=== PATIENT | female | born 1950 | race African-American/Black ===

== ENCOUNTER 2021-02-11 08:08 | Inpatient (IN) | payer OTHER ==
[~2021-02-11] VITALS: Ht 154.9 cm; Wt 146.1 kg
[2021-02-11] MEDS ORDERED: IPRATROPIUM BROMIDE (0.02%) 0.5MG/2.5ML NEB HHN STA (09:16)
[2021-02-11] MEDS ORDERED: ALBUTEROL (0.083%) 2.5MG/3ML NEB HHN STA (09:16)
[2021-02-11] MEDS ORDERED: PREDNISONE 20MG TABLET PO STA (09:16)
[2021-02-11] MEDS ORDERED: MAGNESIUM 2 G PREMIX 50 ML IV STA (09:16)
[2021-02-11 09:26] LABS: BASOPHILS % 0.8 % (0.0-2.0); CHLORIDE 108 mEq/L (98-107); EOSINOPHILS % 7.4 % (0.0-5.0); HEMATOCRIT. 30.1 % (36.0-48.0); HEMOGLOBIN. 9.5 g/dL (12.0-16.0); LYMPHOCYTES % 24.8 % (20.0-50.0); MEAN CORPUSCULAR HEMOGLOBIN 26.2 pg (28.0-32.0); MEAN CORPUSCULAR VOLUME 82.8 fL (81.0-99.0); MEAN PLATELET VOLUME 9.9 fl (7.4-10.4); MONOCYTES % 7.7 % (2.0-8.0); NEUTROPHILS % 59.3 % (40.0-76.0); PLATELET 231 x1000/uL (130-400); RED BLOOD CELL COUNT 3.64 mill/uL (4.2-5.4); RED CELL DISTRIBUTION WIDTH 17.2 % (11.6-14.6)
[2021-02-11] MEDS ORDERED: CEFTRIAXONE 1 G PREMIX 50 ML IV ONE (11:15)
[2021-02-11] MEDS ORDERED: DOXYCYCLINE HYCLATE 100 MG/VIAL IV ONE (11:15)
[2021-02-11] MEDS ORDERED: DOXYCYCLINE 100MG in DEXTROSE 5% WATER 100ML IV NR (11:30)
[2021-02-11] MEDS ORDERED: IPRATROPIUM BROMIDE (0.02%) 0.5MG/2.5ML NEB ONE (12:31)
[2021-02-11] MEDS ORDERED: ALBUTEROL (0.083%) 2.5MG/3ML NEB ONE (12:32)
[2021-02-11] MEDS ORDERED: ALBUTEROL 6.7GM HFA INHALER ORI PRN (13:15)
[2021-02-11] MEDS ORDERED: MORPHINE SULFATE 2 MG/ML CPJ (NOT FOR IM USE) IV PRN (13:15)
[2021-02-11] MEDS ORDERED: DIPHENHYDRAMINE 50MG/ML VIAL IV PRN (13:15)
[2021-02-11] MEDS ORDERED: ONDANSETRON HCL 4MG/2ML INJ IV PRN (13:15)
[2021-02-11] MEDS ORDERED: MAGNESIUM/ALUMINUM HYDROXIDE/SIMETHICONE 30ML UDC PO PRN (13:15)
[2021-02-11] MEDS ORDERED: DOCUSATE SODIUM 100MG CAPSULE PO PRN (13:15)
[2021-02-11] MEDS ORDERED: ACETAMINOPHEN 325MG TABLET PO PRN (13:15)
[2021-02-11] MEDS ORDERED: LORAZEPAM 2MG/ML CPJ IV PRN (13:15)
[2021-02-11] MEDS ORDERED: HYDROCODONE/ACETAMINOPHEN 5/325MG TABLET PO PRN (13:15)
[2021-02-11] MEDS ORDERED: AZITHROMYCIN 500 MG in DEXT 5% WATER 250 ML IV SCH (14:00)
[2021-02-11] MEDS: SODIUM CHLORIDE 0.9% INJ 3ML FLUSH IVF SCH (14:00)
[2021-02-11] MEDS: ENOXAPARIN 40MG/0.4ML SYR SUBCUT SCH ×2 (14:27→20:48)
[2021-02-11] MEDS: CLONIDINE 0.1MG TABLET PO PRN (20:49)
[2021-02-12 00:20] VITALS: BP 142/51
[2021-02-12] MEDS ORDERED: FURO-152 PO (03:46)
[2021-02-12] MEDS ORDERED: ALLO100T PO (03:46)
[2021-02-12] MEDS ORDERED: DABI150C PO (03:46)
[2021-02-12] MEDS ORDERED: ATOR40TA70 PO (03:46)
[2021-02-12] MEDS ORDERED: METO25TA6 PO (03:46)
[2021-02-12] MEDS ORDERED: HYDR50TA PO (03:46)
[2021-02-12] MEDS ORDERED: GLIP5TAB12 PO (03:46)
[2021-02-12] MEDS ORDERED: LISI40TA13 MT (03:46)
[2021-02-12 04:00] VITALS: BP 118/43
[2021-02-12 05:52] LABS: BASOPHILS % 0.9 % (0.0-2.0); HEMATOCRIT. 32.3 % (36.0-48.0); HEMOGLOBIN. 10.3 g/dL (12.0-16.0); LYMPHOCYTES % 13.2 % (20.0-50.0); MEAN CORPUSCULAR HEMOGLOBIN 26.3 pg (28.0-32.0); MEAN CORPUSCULAR VOLUME 82.8 fL (81.0-99.0); MEAN PLATELET VOLUME 9.7 fl (7.4-10.4); NEUTROPHILS % 79.9 % (40.0-76.0); PLATELET 258 x1000/uL (130-400); RED BLOOD CELL COUNT 3.91 mill/uL (4.2-5.4)
[2021-02-12 06:09] LABS: CHLORIDE 109 mEq/L (98-107)
[2021-02-12] MEDS: SODIUM CHLORIDE 0.9% INJ 3ML FLUSH IVF SCH ×4 (07:03→22:20)
[2021-02-12 08:00] VITALS: BP 127/55
[2021-02-12] MEDS: ENOXAPARIN 40MG/0.4ML SYR SUBCUT SCH ×2 (08:24→22:19)
[2021-02-12] MEDS ORDERED: CEFTRIAXONE 1 G PREMIX 50 ML IV SCH (09:00)
[2021-02-12] MEDS ORDERED: IPRATROPIUM/ALBUTEROL 0.5-3(2.5)MG/3ML NEB ONE (10:10)
[2021-02-12 11:58] VITALS: BP 119/53
[2021-02-12] MEDS: CEFTRIAXONE 1,000 MG in DEXTROSE 5% WATER 50 ML IV SCH (13:57)
[2021-02-12] MEDS ORDERED: NALOXONE HCL 0.4MG/ML VIAL IV PRN (14:45)
[2021-02-12 16:00] VITALS: BP 112/51
[2021-02-12] MEDS: MONTELUKAST SODIUM 10MG TABLET PO SCH (16:54)
[2021-02-12] MEDS: METHYLPREDNISOLONE SOD SUCC 40 MG/ML VIAL IV SCH (16:54)
[2021-02-12] MEDS: AZITHROMYCIN 500 MG in DEXT 5% WATER 250 ML IV SCH (16:54)
[2021-02-12 20:00] VITALS: BP 143/58
[2021-02-12] MEDS: IPRATROPIUM/ALBUTEROL 0.5-3(2.5)MG/3ML NEB HHN SCH (21:08)
[2021-02-13] VITALS: BP 143/55
[2021-02-13] MEDS: METHYLPREDNISOLONE SOD SUCC 40 MG/ML VIAL IV SCH ×3 (00:39→16:54)
[2021-02-13] MEDS: IPRATROPIUM/ALBUTEROL 0.5-3(2.5)MG/3ML NEB HHN SCH ×4 (02:35→21:19)
[2021-02-13 04:00] VITALS: BP 140/56
[2021-02-13] MEDS: GUAIFENESIN 200MG/10ML SUGAR FREE UDC PO PRN ×2 (04:14→16:58)
[2021-02-13] MEDS: IPRATROPIUM/ALBUTEROL 0.5-3(2.5)MG/3ML NEB HHN PRN (04:36)
[2021-02-13] MEDS: SODIUM CHLORIDE 0.9% INJ 3ML FLUSH IVF SCH ×3 (06:28→21:38)
[2021-02-13 08:00] VITALS: BP 158/68
[2021-02-13] MEDS: ENOXAPARIN 40MG/0.4ML SYR SUBCUT SCH ×2 (08:45→21:38)
[2021-02-13 12:00] VITALS: BP 145/61
[2021-02-13 16:00] VITALS: BP 154/55
[2021-02-13] MEDS: CEFTRIAXONE 1,000 MG in DEXTROSE 5% WATER 50 ML IV SCH (16:52)
[2021-02-13] MEDS: AZITHROMYCIN 500 MG in DEXT 5% WATER 250 ML IV SCH (16:52)
[2021-02-13] MEDS: MONTELUKAST SODIUM 10MG TABLET PO SCH (16:54)
[2021-02-13] MEDS ORDERED: LACTULOSE 20G/30ML UDC PO NR (17:30)
[2021-02-13 20:00] VITALS: BP 138/62
[2021-02-14] VITALS: BP 128/50
[2021-02-14] MEDS: METHYLPREDNISOLONE SOD SUCC 40 MG/ML VIAL IV SCH ×3 (00:07→17:27)
[2021-02-14] MEDS: GUAIFENESIN 200MG/10ML SUGAR FREE UDC PO PRN ×2 (00:12→08:56)
[2021-02-14] MEDS: IPRATROPIUM/ALBUTEROL 0.5-3(2.5)MG/3ML NEB HHN SCH ×4 (01:17→20:24)
[2021-02-14 04:00] VITALS: BP 127/89
[2021-02-14] MEDS: SODIUM CHLORIDE 0.9% INJ 3ML FLUSH IVF SCH ×3 (06:12→21:03)
[2021-02-14 08:00] VITALS: BP 153/60
[2021-02-14] MEDS: ENOXAPARIN 40MG/0.4ML SYR SUBCUT SCH ×2 (08:41→21:03)
[2021-02-14] MEDS: AZITHROMYCIN 500 MG TABLET PO SCH (11:48)
[2021-02-14 12:00] VITALS: BP 135/52
[2021-02-14] MEDS: CEFTRIAXONE 1,000 MG in DEXTROSE 5% WATER 50 ML IV SCH (15:21)
[2021-02-14 16:00] VITALS: BP 153/71
[2021-02-14] MEDS: MONTELUKAST SODIUM 10MG TABLET PO SCH (17:27)
[2021-02-14 20:00] VITALS: BP 155/94
[2021-02-15] VITALS: BP 157/85
[2021-02-15] MEDS: METHYLPREDNISOLONE SOD SUCC 40 MG/ML VIAL IV SCH ×3 (00:15→16:50)
[2021-02-15] MEDS: IPRATROPIUM/ALBUTEROL 0.5-3(2.5)MG/3ML NEB HHN SCH ×4 (01:33→21:04)
[2021-02-15 04:00] VITALS: BP 158/60
[2021-02-15 06:36] LABS: HEMATOCRIT. 33.5 % (36.0-48.0); HEMOGLOBIN. 10.8 g/dL (12.0-16.0); MEAN CORPUSCULAR HEMOGLOBIN 26.8 pg (28.0-32.0); MEAN CORPUSCULAR VOLUME 82.9 fL (81.0-99.0); PLATELET 265 x1000/uL (130-400); RED BLOOD CELL COUNT 4.04 mill/uL (4.2-5.4); RED CELL DISTRIBUTION WIDTH 17.2 % (11.6-14.6)
[2021-02-15 06:40] LABS: CHLORIDE 106 mEq/L (98-107)
[2021-02-15] MEDS: CLONIDINE 0.1MG TABLET PO PRN (06:56)
[2021-02-15] MEDS: SODIUM CHLORIDE 0.9% INJ 3ML FLUSH IVF SCH ×3 (07:18→21:32)
[2021-02-15] MEDS: ENOXAPARIN 40MG/0.4ML SYR SUBCUT SCH ×2 (09:58→21:31)
[2021-02-15] MEDS: AZITHROMYCIN 500 MG TABLET PO SCH (10:34)
[2021-02-15 12:00] VITALS: BP 180/71
[2021-02-15] MEDS ORDERED: SODIUM POLYSTYRENE SULFONATE 15 G/60 ML BOT PO SCH (13:00)
[2021-02-15] MEDS: CEFTRIAXONE 1,000 MG in DEXTROSE 5% WATER 50 ML IV SCH (15:07)
[2021-02-15 16:00] VITALS: BP 132/75
[2021-02-15] MEDS: MONTELUKAST SODIUM 10MG TABLET PO SCH (16:50)
[2021-02-15 20:00] VITALS: BP 175/75
[2021-02-15 20:14] LABS: PLATELET ESTIMATE NORMAL
[2021-02-15] MEDS: GUAIFENESIN 600MG ER TABLET PO SCH (21:32)
[2021-02-16 00:01] VITALS: BP 174/62
[2021-02-16] MEDS: METHYLPREDNISOLONE SOD SUCC 40 MG/ML VIAL IV SCH ×3 (00:47→17:59)
[2021-02-16] MEDS: IPRATROPIUM/ALBUTEROL 0.5-3(2.5)MG/3ML NEB HHN SCH ×3 (02:45→21:28)
[2021-02-16 04:00] VITALS: BP 181/69
[2021-02-16] MEDS: SODIUM CHLORIDE 0.9% INJ 3ML FLUSH IVF SCH ×3 (05:34→21:41)
[2021-02-16 08:00] VITALS: BP 115/73
[2021-02-16] MEDS: IPRATROPIUM/ALBUTEROL 0.5-3(2.5)MG/3ML NEB HHN PRN (08:43)
[2021-02-16] MEDS: GUAIFENESIN 600MG ER TABLET PO SCH ×2 (09:45→20:38)
[2021-02-16] MEDS: ENOXAPARIN 40MG/0.4ML SYR SUBCUT SCH ×2 (09:46→20:38)
[2021-02-16 12:00] VITALS: BP 120/60
[2021-02-16] MEDS ORDERED: THROAT LOZENGES-BENZOCAINE/MENTH/CETYLPYRD CL LOZENGES MM PRN (13:30)
[2021-02-16] MEDS: CEFTRIAXONE 1,000 MG in DEXTROSE 5% WATER 50 ML IV SCH (15:34)
[2021-02-16 16:00] VITALS: BP 129/63
[2021-02-16] MEDS: MONTELUKAST SODIUM 10MG TABLET PO SCH (17:59)
[2021-02-16 20:00] VITALS: BP 127/76
[2021-02-16] MEDS: FLUTICASONE PROPIONATE 50MCG/SPRAY BOTTLE BOTHNSTRLS SCH (20:38)
[2021-02-17] VITALS: BP 112/70
[2021-02-17] MEDS: METHYLPREDNISOLONE SOD SUCC 40 MG/ML VIAL IV SCH ×3 (01:13→16:26)
[2021-02-17 04:00] VITALS: BP 147/86
[2021-02-17] MEDS: IPRATROPIUM/ALBUTEROL 0.5-3(2.5)MG/3ML NEB HHN PRN (04:59)
[2021-02-17] MEDS: SODIUM CHLORIDE 0.9% INJ 3ML FLUSH IVF SCH ×3 (06:46→22:02)
[2021-02-17 08:00] VITALS: BP 111/71
[2021-02-17] MEDS: IPRATROPIUM/ALBUTEROL 0.5-3(2.5)MG/3ML NEB HHN SCH ×3 (08:38→21:16)
[2021-02-17] MEDS: ENOXAPARIN 40MG/0.4ML SYR SUBCUT SCH ×2 (09:06→22:02)
[2021-02-17] MEDS: GUAIFENESIN 600MG ER TABLET PO SCH ×2 (09:06→22:07)
[2021-02-17] MEDS: FLUTICASONE PROPIONATE 50MCG/SPRAY BOTTLE BOTHNSTRLS SCH ×2 (09:07→22:09)
[2021-02-17 12:00] VITALS: BP 125/99
[2021-02-17 16:00] VITALS: BP 125/99
[2021-02-17 16:24] LABS: BG BASE EXCESS -1.1 mmol/L (-2.0-2.0); BG CARBOXYHEMOGLOBIN 0.6 % (0.5-1.5); BG DEOXYHEMOGLOBIN 4.6 % (0.0-5.0); BG FRACTION INSPIRED OXYGEN 21; BG METHEMOGLOBIN 0.1 % (0.0-1.5); BG OXYGEN SATURATION 95.4 % (92.0-98.5); BG OXYHEMOGLOBIN 94.7 % (94.0-97.0); BG PCO2 36.4 mmHg (35.0-45.0); BG PH 7.418 (7.350-7.450); BG PO2 74.8 mmHg (75.0-100.0); BG SAMPLE SITE RIGHT RADIAL; BG TOTAL HEMOGLOBIN 12.4 g/dL (12.0-18.0); BG VENT MODE ROOM AIR
[2021-02-17] MEDS: CEFTRIAXONE 1,000 MG in DEXTROSE 5% WATER 50 ML IV SCH (16:26)
[2021-02-17] MEDS: MONTELUKAST SODIUM 10MG TABLET PO SCH (16:26)
[2021-02-17 20:00] VITALS: BP 145/59
[2021-02-17] MEDS: GUAIFENESIN 200MG/10ML SUGAR FREE UDC PO PRN (22:02)
[2021-02-18] VITALS: BP 145/107
[2021-02-18] MEDS: CLONIDINE 0.1MG TABLET PO PRN ×2 (00:42→09:41)
[2021-02-18 04:00] VITALS: BP 113/72
[2021-02-18] MEDS: SODIUM CHLORIDE 0.9% INJ 3ML FLUSH IVF SCH ×2 (05:05→16:55)
[2021-02-18 08:00] VITALS: BP 184/78
[2021-02-18] MEDS: IPRATROPIUM/ALBUTEROL 0.5-3(2.5)MG/3ML NEB HHN SCH (09:13)
[2021-02-18] MEDS: FLUTICASONE PROPIONATE 50MCG/SPRAY BOTTLE BOTHNSTRLS SCH (09:41)
[2021-02-18] MEDS: GUAIFENESIN 600MG ER TABLET PO SCH (09:41)
[2021-02-18] MEDS: ENOXAPARIN 40MG/0.4ML SYR SUBCUT SCH (09:41)
[2021-02-18] MEDS: METHYLPREDNISOLONE SOD SUCC 40 MG/ML VIAL IV SCH ×3 (09:41→16:55)
[2021-02-18 12:00] VITALS: BP 140/43
[2021-02-18 16:00] VITALS: BP 141/42
[2021-02-18 16:14] VITALS: BP 141/54
[2021-02-18] MEDS: MONTELUKAST SODIUM 10MG TABLET PO SCH (16:55)
[2021-02-18] MEDS ORDERED: HYDRALAZINE 20MG/ML VIAL IV NR (17:00)
== END 2021-02-18 17:30 | disposition home or self-care (01) | DRG 193 ==
LOC: ER 08:24 → MICUSO 11:59 → 7EST 20:57
PROVIDERS: ADMIT Internal Medicine; ATTEND Internal Medicine
DX: J18.9 Pneumonia, unspecified organism (principal); L89.893 Pressure ulcer of other site, stage 3; J96.00 Acute respiratory failure, unspecified whether with hypoxia or hypercapnia; E46 Unspecified protein-calorie malnutrition; J45.901 Unspecified asthma with (acute) exacerbation; Z68.44 Body mass index [BMI] 60.0-69.9, adult; D72.10 Eosinophilia, unspecified; E11.51 Type 2 diabetes mellitus with diabetic peripheral angiopathy without gangrene; I11.9 Hypertensive heart disease without heart failure; I25.10 Atherosclerotic heart disease of native coronary artery without angina pectoris; E66.01 Morbid (severe) obesity due to excess calories; E87.5 Hyperkalemia; Z20.822 Contact with and (suspected) exposure to COVID-19; Z87.09 Personal history of other diseases of the respiratory system; Z89.512 Acquired absence of left leg below knee; Z89.612 Acquired absence of left leg above knee; Z88.2 Allergy status to sulfonamides
CPT/HCPCS: 36415; 36600; 71045; 80048; 80053; 82040; 82375; 82805; 82962; 83735; 83880; 84134; 84484; 85025; 87426; 93005; 94640; 97110; 97162; 97530; 99285; C1893; J0360; J0456; J0696; J1650; J2920; J3475; J3490; J7040; J7060; J7512

== ENCOUNTER 2021-12-30 01:16 | Inpatient (IN) | payer OTHER ==
[~2021-12-30] VITALS: Ht 165.1 cm; Wt 146.5 kg
[~2021-12-30 01:16] MED LIST: ALLO100T PO; ATOR40TA70 PO; DABI150C PO; FURO-152 PO; GLIP5TAB12 PO; HYDR50TA PO; LISI40TA13 MT; METO25TA6 PO
[2021-12-30 01:57] LABS: BASOPHILS % 0.5 % (0.0-2.0); EOSINOPHILS % 8.7 % (0.0-5.0); HEMATOCRIT. 33.9 % (36.0-48.0); HEMOGLOBIN. 10.6 g/dL (12.0-16.0); LYMPHOCYTES % 15.3 % (20.0-50.0); MEAN CORPUSCULAR HEMOGLOBIN 26.6 pg (28.0-32.0); MEAN CORPUSCULAR VOLUME 84.7 fL (81.0-99.0); MEAN PLATELET VOLUME 9.1 fl (7.4-10.4); MONOCYTES % 6.5 % (2.0-8.0); PLATELET 242 x1000/uL (130-400)
[2021-12-30] MEDS ORDERED: MAGNESIUM 2 G PREMIX 50 ML IV ONE (02:00)
[2021-12-30] MEDS ORDERED: METHYLPREDNISOLONE SOD SUCC 125 MG/2 ML VIAL IV ONE (02:00)
[2021-12-30] MEDS ORDERED: IPRATROPIUM/ALBUTEROL 0.5-3(2.5)MG/3ML NEB HHN ONE (02:00)
[2021-12-30 02:05] LABS: INR 1.2; PROTHROMBIN TIME 12.9 sec (9.6-11.0)
[2021-12-30 02:22] LABS: CHLORIDE 105 mEq/L (98-107)
[2021-12-30] MEDS ORDERED: FUROSEMIDE 40MG/4ML VIAL IVP ONE (03:00)
[2021-12-30] MEDS ORDERED: ASPIRIN 325MG EC TABLET PO ONE (03:45)
[2021-12-30] MEDS ORDERED: IOHEXOL-350 100 ML BOTTLE ONE (06:32)
[2021-12-30] MEDS ORDERED: ENOXAPARIN 150MG/ML SYR SUBCUT NR (07:00)
[2021-12-30] MEDS ORDERED: IPRATROPIUM/ALBUTEROL 0.5-3(2.5)MG/3ML NEB HHN PRN (07:15)
[2021-12-30] MEDS ORDERED: CLONIDINE 0.1MG TABLET PO PRN (07:15)
[2021-12-30] MEDS ORDERED: ACETAMINOPHEN 325MG TABLET PO PRN ×2 (07:15)
[2021-12-30] MEDS ORDERED: LORAZEPAM 0.5MG TABLET PO PRN (07:15)
[2021-12-30] MEDS ORDERED: DOCUSATE SODIUM 100MG CAPSULE PO PRN (07:15)
[2021-12-30] MEDS ORDERED: NITROGLYCERIN 0.4MG TABLET SL SL PRN (07:15)
[2021-12-30] MEDS ORDERED: HYDROCODONE/ACETAMINOPHEN 5/325MG TABLET PO PRN (07:15)
[2021-12-30] MEDS ORDERED: ONDANSETRON HCL 4MG/2ML INJ IV PRN (07:15)
[2021-12-30] MEDS ORDERED: MORPHINE SULFATE 2 MG/ML CPJ (NOT FOR IM USE) IV PRN (07:15)
[2021-12-30] MEDS ORDERED: NALOXONE HCL 0.4MG/ML VIAL IV PRN (07:30)
[2021-12-30 09:20] VITALS: BP 141/53
[2021-12-30 10:00] VITALS: BP 141/53
[2021-12-30 12:00] VITALS: BP 163/63
[2021-12-30] MEDS ORDERED: AMLODIPINE 5MG TABLET PO SCH (13:30)
[2021-12-30] MEDS ORDERED: DEXTROSE 50% WATER 50ML SYRINGE IV PRN (13:30)
[2021-12-30] MEDS: ALLOPURINOL 100 MG TABLET PO SCH (13:56)
[2021-12-30 16:00] VITALS: BP 127/63
[2021-12-30] MEDS: BLOOD SUGAR DIAGNOSTIC STRIP TEST SCH (17:05)
[2021-12-30] MEDS: INSULIN LISPRO 100 UNITS/ML SUBCUT SCH ×2 (17:05→20:58)
[2021-12-30 20:00] VITALS: BP 143/64
[2021-12-30] MEDS: ATORVASTATIN CALCIUM 40MG TABLET PO SCH (20:53)
[2021-12-30] MEDS: AMLODIPINE 5MG TABLET PO SCH (20:54)
[2021-12-30] MEDS: ENOXAPARIN 150MG/ML SYR SUBCUT SCH (20:55)
[2021-12-30] MEDS: IPRATROPIUM/ALBUTEROL 0.5-3(2.5)MG/3ML NEB HHN SCH (21:02)
[2021-12-31] VITALS (12 sets, daily range): BP systolic 104–143; BP diastolic 56–79
[2021-12-31] MEDS: IPRATROPIUM/ALBUTEROL 0.5-3(2.5)MG/3ML NEB HHN SCH ×4 (01:38→20:42)
[2021-12-31] MEDS: BLOOD SUGAR DIAGNOSTIC STRIP TEST SCH ×4 (07:20→20:20)
[2021-12-31] MEDS: INSULIN LISPRO 100 UNITS/ML SUBCUT SCH ×4 (07:50→20:21)
[2021-12-31 08:04] LABS: BASOPHILS % 0.4 % (0.0-2.0); EOSINOPHILS % 0.6 % (0.0-5.0); HEMATOCRIT. 33.3 % (36.0-48.0); HEMOGLOBIN. 10.5 g/dL (12.0-16.0); LYMPHOCYTES % 12.5 % (20.0-50.0); MEAN CORPUSCULAR HEMOGLOBIN 26.7 pg (28.0-32.0); MEAN CORPUSCULAR VOLUME 84.2 fL (81.0-99.0); MEAN PLATELET VOLUME 9.7 fl (7.4-10.4); NEUTROPHILS % 80.5 % (40.0-76.0); PLATELET 253 x1000/uL (130-400); RED BLOOD CELL COUNT 3.95 mill/uL (4.2-5.4); RED CELL DISTRIBUTION WIDTH 18.6 % (11.6-14.6)
[2021-12-31 08:08] LABS: CHLORIDE 103 mEq/L (98-107)
[2021-12-31] MEDS ORDERED: ASPIRIN 81MG EC TABLET PO SCH (09:00)
[2021-12-31 09:20] LABS: PHOSPHORUS 0.3 mg/dL (2.5-4.9)
[2021-12-31] MEDS: ALLOPURINOL 100 MG TABLET PO SCH (09:23)
[2021-12-31] MEDS: AMLODIPINE 5MG TABLET PO SCH ×2 (09:24→20:20)
[2021-12-31] MEDS: ENOXAPARIN 150MG/ML SYR SUBCUT SCH ×2 (09:24→20:21)
[2021-12-31] MEDS ORDERED: FUROSEMIDE 40MG/4ML VIAL IVP SCH (11:00)
[2021-12-31] MEDS ORDERED: SODIUM PHOS,M-BASIC-D-BASIC 20 MM in DEXT 5% WATER 243.3333 ML IV NR (12:30)
[2021-12-31] MEDS ORDERED: BUDESONIDE 0.5MG/2ML NEB HHN SCH (15:30)
[2021-12-31] MEDS ORDERED: POTASSIUM PHOS,M-BASIC-D-BASIC 30 MMOL in DEXT 5% WATER 500 ML IV SCH (17:00)
[2021-12-31] MEDS: ATORVASTATIN CALCIUM 40MG TABLET PO SCH (20:20)
[2022-01-01 00:06] VITALS: BP 147/72
== END 2022-01-01 00:25 | disposition short-term general hospital (02) | DRG 280 ==
LOC: ER 01:16 → ENRESERV 07:12 → 6WST 09:52 → 3WST 12-31 09:09
PROVIDERS: ADMIT Internal Medicine; ATTEND Internal Medicine
DX: I21.4 Non-ST elevation (NSTEMI) myocardial infarction (principal); I26.99 Other pulmonary embolism without acute cor pulmonale; J96.01 Acute respiratory failure with hypoxia; I50.21 Acute systolic (congestive) heart failure; E44.1 Mild protein-calorie malnutrition; J45.901 Unspecified asthma with (acute) exacerbation; J84.9 Interstitial pulmonary disease, unspecified; Z68.43 Body mass index [BMI] 50.0-59.9, adult; E66.01 Morbid (severe) obesity due to excess calories; D64.9 Anemia, unspecified; D72.10 Eosinophilia, unspecified; E11.51 Type 2 diabetes mellitus with diabetic peripheral angiopathy without gangrene; E83.39 Other disorders of phosphorus metabolism; E87.6 Hypokalemia; Z20.822 Contact with and (suspected) exposure to COVID-19; E78.5 Hyperlipidemia, unspecified; I11.0 Hypertensive heart disease with heart failure; I25.10 Atherosclerotic heart disease of native coronary artery without angina pectoris; I44.7 Left bundle-branch block, unspecified; K80.20 Calculus of gallbladder without cholecystitis without obstruction; N28.1 Cyst of kidney, acquired; Z79.84 Long term (current) use of oral hypoglycemic drugs; Z86.718 Personal history of other venous thrombosis and embolism; Z89.612 Acquired absence of left leg above knee; Z95.828 Presence of other vascular implants and grafts; Z88.2 Allergy status to sulfonamides; Z79.899 Other long term (current) drug therapy
CPT/HCPCS: 36415; 71045; 71275; 80048; 80053; 80061; 82962; 83036; 83735; 83880; 84100; 84443; 84484; 85025; 85379; 87426; 93005; 93306; 94640; 94664; 99285; C1893; J1650; J1815; J1940; J2930; J3475; J3490; J7060; J7626; Q9967

== ENCOUNTER 2022-05-12 14:47 | Emergency (ER) | payer OTHER ==
[~2022-05-12] VITALS: Ht 157.5 cm; Wt 200.0 kg
[2022-05-12 16:11] LABS: EOSINOPHILS % 3.2 % (0.0-5.0); LYMPHOCYTES % 20.5 % (20.0-50.0); MEAN CORPUSCULAR HEMOGLOBIN 22.7 pg (28.0-32.0); MEAN CORPUSCULAR VOLUME 75.2 fL (81.0-99.0); MEAN PLATELET VOLUME 8.8 fl (7.4-10.4); MONOCYTES % 5.8 % (2.0-8.0); NEUTROPHILS % 69.5 % (40.0-76.0); PLATELET 267 x1000/uL (130-400); RED BLOOD CELL COUNT 4.38 mill/uL (4.2-5.4)
[2022-05-12 16:14] LABS: CHLORIDE 107 mEq/L (98-107)
[2022-05-12 16:24] LABS: ETHANOL BLOOD < 10 mg/dL
[2022-05-12] MEDS ORDERED: FUROSEMIDE 40MG/4ML VIAL IVP ONE (16:45)
[2022-05-12] MEDS ORDERED: MORPHINE SULFATE 4 MG/ML CPJ (NOT FOR IM USE) IV NR (17:30)
[2022-05-12 20:00] VITALS: BP 123/94
== END 2022-05-12 21:24 | disposition short-term general hospital (02) ==
LOC: ER 15:01
DX: I11.0 Hypertensive heart disease with heart failure (principal); I50.9 Heart failure, unspecified; R07.9 Chest pain, unspecified; J45.909 Unspecified asthma, uncomplicated; R77.8 Other specified abnormalities of plasma proteins; D64.9 Anemia, unspecified; J44.9 Chronic obstructive pulmonary disease, unspecified; E11.9 Type 2 diabetes mellitus without complications; Z88.2 Allergy status to sulfonamides; Z20.822 Contact with and (suspected) exposure to COVID-19; Z89.619 Acquired absence of unspecified leg above knee
CPT/HCPCS: 36415; 71045; 80053; 80320; 83690; 83880; 84484; 85025; 87426; 93005; 96374; 96375; 99285; C9803; J1940; J2270; G0480

== ENCOUNTER 2023-04-06 18:24 | Emergency (ER) | payer OTHER ==
[~2023-04-06] VITALS: Ht 165.1 cm; Wt 77.0 kg
[~2023-04-06 18:24] MED LIST changes: -GLIP5TAB12 PO; +GLIP5TAB22 PO
[2023-04-06] MEDS ORDERED: IPRATROPIUM BROMIDE (0.02%) 0.5MG/2.5ML NEB HHN NR (18:37)
[2023-04-06] MEDS ORDERED: IPRATROPIUM BROMIDE (0.02%) 0.5MG/2.5ML NEB HHN STA (18:37)
[2023-04-06] MEDS ORDERED: METHYLPREDNISOLONE SOD SUCC 125MG/2ML (ACT-O-VIAL) IV STA (18:37)
[2023-04-06] MEDS ORDERED: ALBUTEROL (0.083%) 2.5MG/3ML NEB HHN STA (18:37)
[2023-04-06] MEDS ORDERED: ALBUTEROL (0.083%) 2.5MG/3ML NEB HHN NR (18:37)
[2023-04-06] MEDS ORDERED: METHYLPREDNISOLONE SOD SUCC 125MG/2ML (ACT-O-VIAL) IV NR (18:37)
[2023-04-06] MEDS ORDERED: MAGNESIUM 2 G PREMIX 50 ML IV ONE (18:45)
[2023-04-06 19:46] LABS: BASOPHILS % 0.9 % (0.0-2.0); EOSINOPHILS % 4.3 % (0.0-5.0); HEMOGLOBIN. 11.3 g/dL (12.0-16.0); LYMPHOCYTES % 27.2 % (20.0-50.0); MEAN CORPUSCULAR HEMOGLOBIN 28.9 pg (28.0-32.0); MEAN CORPUSCULAR HGB CONC 32.3 g/dL (31.0-37.0); MEAN CORPUSCULAR VOLUME 89.4 fL (81.0-99.0); MEAN PLATELET VOLUME 9.2 fl (7.4-10.4); MONOCYTES % 7.9 % (2.0-8.0); NEUTROPHILS % 59.7 % (40.0-76.0); PLATELET 231 x1000/uL (130-400); RED BLOOD CELL COUNT 3.92 mill/uL (4.2-5.4); RED CELL DISTRIBUTION WIDTH 18.3 % (11.6-14.6); WHITE BLOOD COUNT 6.1 x1000/uL (4.5-11.0)
[2023-04-06 19:58] LABS: INR 1.2; PARTIAL THROMBOPLASTIN TIME 33.3 sec (23.4-31.0); PROTHROMBIN TIME 12.4 sec (9.6-11.0)
[2023-04-06 20:04] LABS: ALANINE AMINOTRANSFERASE 18 IU/L (10-49); ALBUMIN 3.7 g/dL (3.2-4.8); ASPARTATE AMINOTRANSFERASE 22 IU/L (<34); BILIRUBIN TOTAL 0.5 mg/dL (0.1-1.0); CALCIUM 9.8 mg/dL (8.7-10.4); CARBON DIOXIDE 14 mEq/L (21-32); CHLORIDE 109 mEq/L (98-107); CREATININE 1.1 mg/dL (0.6-1.0); GLUCOSE 113 mg/dL (70-105); POTASSIUM 5.4 mEq/L (3.5-5.1); PROTEIN TOTAL 7.6 g/dL (6.0-8.3); SODIUM 138 mEq/L (136-145); UREA NITROGEN BLOOD 65 mg/dL (9-23)
[2023-04-06 20:56] LABS: TROPONIN I HIGH SENSITIVITY 37 ng/L (3.0-34)
[2023-04-06] MEDS ORDERED: SODIUM CHLORIDE 0.9% 500 ML IV ONE (22:30)
[2023-04-06 22:35] VITALS: PULSE 90; RESP 20; O2SAT 99
[2023-04-07 01:35] LABS: TROPONIN I HIGH SENSITIVITY 52 ng/L (3.0-34)
[2023-04-07] MEDS ORDERED: ALBUTEROL (0.083%) 2.5MG/3ML NEB HHN ONE (04:00)
[2023-04-07 08:21] VITALS: BP 131/78; PULSE 113; RESP 24; TEMP 98.3
== END 2023-04-07 08:19 | disposition short-term general hospital (02) ==
LOC: ER 18:24 → CANBEDREQ 04-07 11:10
DX: J45.901 Unspecified asthma with (acute) exacerbation (principal); I21.4 Non-ST elevation (NSTEMI) myocardial infarction; I48.91 Unspecified atrial fibrillation; I50.9 Heart failure, unspecified; J44.9 Chronic obstructive pulmonary disease, unspecified; E11.9 Type 2 diabetes mellitus without complications; Z79.899 Other long term (current) drug therapy; Z88.2 Allergy status to sulfonamides; Z20.822 Contact with and (suspected) exposure to COVID-19
CPT/HCPCS: 99291; 96365; 80053; 83880; 85025; 85610; 85730; 84484 ×2; 36415 ×2; 71045; 94640; 93005; 87426; J3475; J2930; J7040

== ENCOUNTER 2024-02-17 18:10 | Inpatient (IN) | payer OTHER ==
[~2024-02-17] VITALS: Ht 170.2 cm; Wt 117.9 kg
[2024-02-17 20:31] LABS: BASOPHILS % 0.9 % (0.0-2.0); EOSINOPHILS % 3.3 % (0.0-5.0); HEMOGLOBIN. 12.6 g/dL (12.0-16.0); LYMPHOCYTES % 16.7 % (20.0-50.0); MEAN CORPUSCULAR HEMOGLOBIN 29.6 pg (28.0-32.0); MEAN CORPUSCULAR HGB CONC 32.2 g/dL (31.0-37.0); MEAN CORPUSCULAR VOLUME 91.8 fL (81.0-99.0); MEAN PLATELET VOLUME 9.3 fl (7.4-10.4); MONOCYTES % 9.3 % (2.0-8.0); NEUTROPHILS % 69.8 % (40.0-76.0); PLATELET 301 x1000/uL (130-400); RED BLOOD CELL COUNT 4.25 mill/uL (4.2-5.4); RED CELL DISTRIBUTION WIDTH 18.9 % (11.6-14.6); WHITE BLOOD COUNT 5.7 x1000/uL (4.5-11.0)
[2024-02-17 20:38] LABS: POTASSIUM 4.7 mEq/L (3.5-5.1)
[2024-02-17 20:39] LABS: CALCIUM 9.8 mg/dL (8.7-10.4)
[2024-02-17 20:42] LABS: INR 1.7; PROTHROMBIN TIME 17.9 sec (9.6-11.0)
[2024-02-17 20:44] LABS: CREATININE 1.6 mg/dL (0.6-1.0)
[2024-02-17] MEDS: MORPHINE SULFATE 4 MG/ML INJ (FOR IV/IM USE) IV ONE (20:44)
[2024-02-17] MEDS: SODIUM CHLORIDE 0.9% 1,000 ML IV ONE (22:58)
[2024-02-17] MEDS: IOHEXOL-300 100 ML BOTTLE ONE (23:42)
[2024-02-17] MEDS: CEFTRIAXONE 1GM/50ML 50 ML IV ONE (23:58)
[2024-02-18] VITALS (47 sets, daily range): BP systolic 69–141; BP diastolic 37–126; PULSE 56–92; RESP 14–29; TEMP 36.44736–36.61404; O2SAT 96–100
[2024-02-18 00:09] LABS: CLARITY URINE TURBID (CLEAR); COLOR URINE RED (YELLOW); GLUCOSE URINE NEGATIVE (NEGATIVE); KETONES URINE NEGATIVE (NEGATIVE); LEUKOCYTE ESTERASE URINE 2+ (NEGATIVE); NITRITE URINE POSITIVE (NEGATIVE); OCCULT BLOOD URINE 2+ (NEGATIVE); PROTEIN URINE 2+ (NEGATIVE); SPECIFIC GRAVITY URINE 1.021 (1.005-1.030); UROBILINOGEN URINE 0.2 E.U./dL (0.2-1.0)
[2024-02-18] MEDS: CEFTRIAXONE 1GM/50ML 50 ML IV NR (00:15)
[2024-02-18] MEDS ORDERED: VASOPRESSIN 20 UNIT in SODIUM CHLORIDE 0.9% 99 ML IV PRN ×2 (02:30→02:45)
[2024-02-18] MEDS ORDERED: EPINEPHRINE 5 MG in SODIUM CHLORIDE 0.9% 245 ML IV PRN (02:30)
[2024-02-18] MEDS: SODIUM CHLORIDE 0.9% 1,000 ML IV NR (02:46)
[2024-02-18 02:52] LABS: BACTERIA URINE 3+; RBC URINE TNTC /hpf (0-2); SQUAMOUS EPITHELIAL CELL URINE NONE SEEN /lpf (RARE/1+); WBC URINE 0-2 /hpf (0-2)
[2024-02-18] MEDS: HUMAN-LANS PROTHROMBIN CPLX (PCC) 1000 UNITS VIAL IV NR (03:11)
[2024-02-18] MEDS: NOREPINEPHRINE 8MG/250ML PMX 250 ML IV PRN (04:00)
[2024-02-18] MEDS: SODIUM CHLORIDE 0.9% 1,000 ML IV ONE (04:00)
[2024-02-18] MEDS ORDERED: DEXTROSE 50% WATER 50ML SYRINGE IV PRN (07:30)
[2024-02-18] MEDS ORDERED: IPRATROPIUM/ALBUTEROL 0.5-3(2.5)MG/3ML NEB HHN PRN (07:30)
[2024-02-18] MEDS ORDERED: ACETAMINOPHEN 325MG TABLET PO PRN (07:30)
[2024-02-18] MEDS ORDERED: CLONIDINE 0.1MG TABLET PO PRN (07:30)
[2024-02-18] MEDS ORDERED: ONDANSETRON HCL 4MG/2ML INJ IV PRN (07:30)
[2024-02-18] MEDS: BLOOD SUGAR DIAGNOSTIC STRIP TEST SCH (09:13)
[2024-02-18] MEDS: ACETAMINOPHEN 325MG TABLET PO PRN (09:16)
[2024-02-18] MEDS: INSULIN LISPRO 100 UNITS/ML SUBCUT SCH (10:01)
[2024-02-18 10:55] LABS: HEMATOCRIT 35.8 % (36.0-48.0); HEMOGLOBIN 11.2 g/dL (12.0-16.0); MEAN CORPUSCULAR HGB CONC 31.4 g/dL (31.0-37.0); MEAN CORPUSCULAR VOLUME 92.4 fL (81.0-99.0); PLATELET 245 x1000/uL (130-400); RED BLOOD CELL COUNT 3.87 mill/uL (4.2-5.4); RED CELL DISTRIBUTION WIDTH 18.6 % (11.6-14.6); WHITE BLOOD COUNT 12.2 x1000/uL (4.5-11.0)
[2024-02-18 11:04] LABS: CHLORIDE 112 mEq/L (98-107); SODIUM 142 mEq/L (136-145)
[2024-02-18 11:05] LABS: CALCIUM 9.1 mg/dL (8.7-10.4); CARBON DIOXIDE 22 mEq/L (21-32)
[2024-02-18 11:09] LABS: CREATININE 1.2 mg/dL (0.6-1.0); GLUCOSE 193 mg/dL (70-105)
[2024-02-18 11:10] LABS: UREA NITROGEN BLOOD 42 mg/dL (9-23)
[2024-02-18 11:11] LABS: ALANINE AMINOTRANSFERASE 12 IU/L (10-49); ALBUMIN 3.4 g/dL (3.2-4.8)
[2024-02-18 11:12] LABS: ASPARTATE AMINOTRANSFERASE 16 IU/L (<34); BILIRUBIN TOTAL 0.6 mg/dL (0.1-1.0)
[2024-02-18] MEDS: SODIUM CHLORIDE 0.9% 1,000 ML IV SCH (12:46)
[2024-02-18] MEDS: MIDODRINE HCL 5MG TABLET PO SCH (12:46)
[2024-02-18] MEDS ORDERED: LIDOCAINE HCL 1% 10 MG/ML 10ML VIAL ONE (13:26)
[2024-02-18] MEDS ORDERED: LIDOCAINE HCL/PF 1% 10 MG/ML 5ML VIAL ONE (13:27)
[2024-02-18] MEDS: CEFTRIAXONE 1GM/50ML 50 ML IV SCH (23:00)
[2024-02-19] VITALS (49 sets, daily range): BP systolic 67–147; BP diastolic 46–119; PULSE 55–94; RESP 12–29; TEMP 36.6696–36.89184; O2SAT 70–100
[2024-02-19] MEDS ORDERED: NALOXONE HCL 0.4MG/ML VIAL IV PRN (00:30)
[2024-02-19] MEDS ORDERED: MORPHINE SULFATE 2 MG/ML INJ (NOT FOR IM USE) IV PRN (00:30)
[2024-02-19] MEDS: HYDROCODONE/ACETAMINOPHEN 5/325MG TABLET PO PRN (00:37)
[2024-02-19 06:02] LABS: HEMATOCRIT. 33.6 % (36.0-48.0); HEMOGLOBIN. 10.7 g/dL (12.0-16.0); LYMPHOCYTES % 11.9 % (20.0-50.0); MEAN CORPUSCULAR HEMOGLOBIN 29.6 pg (28.0-32.0); MEAN CORPUSCULAR VOLUME 92.7 fL (81.0-99.0); MEAN PLATELET VOLUME 9.7 fl (7.4-10.4); MONOCYTES % 5.8 % (2.0-8.0); NEUTROPHILS % 77.6 % (40.0-76.0); PLATELET 224 x1000/uL (130-400); RED BLOOD CELL COUNT 3.62 mill/uL (4.2-5.4); RED CELL DISTRIBUTION WIDTH 18.5 % (11.6-14.6); WHITE BLOOD COUNT 8.7 x1000/uL (4.5-11.0)
[2024-02-19 06:03] LABS: BASOPHILS % 0.7 % (0.0-2.0)
[2024-02-19 06:33] LABS: CALCIUM 9.6 mg/dL (8.7-10.4); CHLORIDE 109 mEq/L (98-107); SODIUM 140 mEq/L (136-145)
[2024-02-19 06:34] LABS: CARBON DIOXIDE 21 mEq/L (21-32)
[2024-02-19 06:39] LABS: GLUCOSE 111 mg/dL (70-105); UREA NITROGEN BLOOD 38 mg/dL (9-23)
[2024-02-19 06:43] LABS: TROPONIN I HIGH SENSITIVITY 209 ng/L (3.0-34)
[2024-02-19 06:53] LABS: HEPATITIS B SURFACE ANTIGEN NEGATIVE (Negative)
[2024-02-19 07:14] LABS: HEPATITIS C AB NON REACTIVE (Neg) (Negative)
[2024-02-19] MEDS: FUROSEMIDE 100MG/10ML VIAL IVP NR (09:19)
[2024-02-19] MEDS: DOCUSATE SODIUM 100MG CAPSULE PO PRN (12:51)
[2024-02-19] MEDS: METHYLPREDNISOLONE SOD SUCC 125MG/2ML (ACT-O-VIAL) IV NR (12:52)
[2024-02-19] MEDS: BISACODYL 10MG SUPP PR NR (14:26)
[2024-02-19] MEDS ORDERED: ZINC OXIDE 20% OINT 30GM TOP PRN (20:00)
[2024-02-20] VITALS (39 sets, daily range): BP systolic 72–139; BP diastolic 35–98; PULSE 60–96; RESP 15–31; TEMP 36.33624–36.78072; O2SAT 90–100
[2024-02-20] MEDS: IPRATROPIUM/ALBUTEROL 0.5-3(2.5)MG/3ML NEB HHN SCH (02:45)
[2024-02-20 06:10] LABS: CHLORIDE 110 mEq/L (98-107); INR 1.1; POTASSIUM 5.1 mEq/L (3.5-5.1); PROTHROMBIN TIME 12.2 sec (9.6-11.0); SODIUM 139 mEq/L (136-145)
[2024-02-20 06:11] LABS: CALCIUM 9.6 mg/dL (8.7-10.4); CARBON DIOXIDE 22 mEq/L (21-32)
[2024-02-20 06:16] LABS: CREATININE 1.1 mg/dL (0.6-1.0); GLUCOSE 204 mg/dL (70-105); UREA NITROGEN BLOOD 45 mg/dL (9-23)
[2024-02-20 06:18] LABS: ALANINE AMINOTRANSFERASE 12 IU/L (10-49); ALBUMIN 3.4 g/dL (3.2-4.8); ASPARTATE AMINOTRANSFERASE 18 IU/L (<34); BILIRUBIN DIRECT 0.1 mg/dL (<=3.0); BILIRUBIN TOTAL 0.3 mg/dL (0.1-1.0); PREALBUMIN 12.1 mg/dl (10.0-40.0); PROTEIN TOTAL 6.9 g/dL (6.0-8.3)
[2024-02-20 06:27] LABS: BASOPHILS % 0.3 % (0.0-2.0); HEMATOCRIT. 30.1 % (36.0-48.0); HEMOGLOBIN. 9.8 g/dL (12.0-16.0); LYMPHOCYTES % 9.6 % (20.0-50.0); MEAN CORPUSCULAR HEMOGLOBIN 29.9 pg (28.0-32.0); MEAN CORPUSCULAR HGB CONC 32.7 g/dL (31.0-37.0); MEAN CORPUSCULAR VOLUME 91.3 fL (81.0-99.0); MEAN PLATELET VOLUME 9.4 fl (7.4-10.4); MONOCYTES % 0.9 % (2.0-8.0); NEUTROPHILS % 89.2 % (40.0-76.0); PLATELET 213 x1000/uL (130-400); RED BLOOD CELL COUNT 3.29 mill/uL (4.2-5.4); RED CELL DISTRIBUTION WIDTH 18.2 % (11.6-14.6); WHITE BLOOD COUNT 5.6 x1000/uL (4.5-11.0)
[2024-02-20] MEDS: FUROSEMIDE 40MG/4ML VIAL IVP SCH (08:28)
[2024-02-20] MEDS: PANTOT AC/MIN OIL/PET HY-PHL OINT (AQUAPHOR) TOP SCH (08:28)
[2024-02-20] MEDS: METHYLPREDNISOLONE SOD SUCC 40MG/ML (ACT-O-VIAL) IV SCH (08:28)
[2024-02-21] VITALS (9 sets, daily range): BP systolic 91–146; BP diastolic 53–76; PULSE 61–92; RESP 16–20; TEMP 36.22512–36.78072; O2SAT 93–98
[2024-02-21 07:36] LABS: HEMATOCRIT. 31.2 % (36.0-48.0); HEMOGLOBIN. 9.8 g/dL (12.0-16.0); MEAN CORPUSCULAR HEMOGLOBIN 28.8 pg (28.0-32.0); MEAN CORPUSCULAR HGB CONC 31.3 g/dL (31.0-37.0); MEAN CORPUSCULAR VOLUME 91.9 fL (81.0-99.0); MEAN PLATELET VOLUME 9.1 fl (7.4-10.4); PLATELET 226 x1000/uL (130-400); RED CELL DISTRIBUTION WIDTH 18.1 % (11.6-14.6); WHITE BLOOD COUNT 11.9 x1000/uL (4.5-11.0)
[2024-02-21 07:56] LABS: DIFFERENTIAL COMMENT 1
[2024-02-21 08:39] LABS: CHLORIDE 109 mEq/L (98-107); POTASSIUM 5.3 mEq/L (3.5-5.1); SODIUM 136 mEq/L (136-145)
[2024-02-21 08:40] LABS: CALCIUM 9.8 mg/dL (8.7-10.4); CARBON DIOXIDE 22 mEq/L (21-32)
[2024-02-21 08:45] LABS: GLUCOSE 158 mg/dL (70-105)
[2024-02-21 08:46] LABS: UREA NITROGEN BLOOD 52 mg/dL (9-23)
[2024-02-21 08:47] LABS: PHOSPHORUS 3.9 mg/dL (2.5-4.9)
[2024-02-21 09:08] LABS: CREATININE 1.5 mg/dL (0.6-1.0)
[2024-02-21] MEDS ORDERED: SODIUM POLYSTYRENE SULFONATE 15 G/60 ML BOT PO ONE (09:45)
[2024-02-21] MEDS: SODIUM ZIRCONIUM CYCLOSILICATE 10GM/PACKET PO NR (10:26)
[2024-02-21 11:29] LABS: CLARITY URINE CLEAR (CLEAR); COLOR URINE YELLOW (YELLOW); GLUCOSE URINE NEGATIVE (NEGATIVE); KETONES URINE NEGATIVE (NEGATIVE); LEUKOCYTE ESTERASE URINE 1+ (NEGATIVE); NITRITE URINE NEGATIVE (NEGATIVE); OCCULT BLOOD URINE 2+ (NEGATIVE); PH URINE 5.5 (4.5-8.0); PROTEIN URINE NEGATIVE (NEGATIVE); SPECIFIC GRAVITY URINE 1.006 (1.005-1.030); UROBILINOGEN URINE 0.2 E.U./dL (0.2-1.0)
[2024-02-21 12:00] LABS: SQUAMOUS EPITHELIAL CELL URINE FEW /lpf (RARE/1+)
[2024-02-21 12:01] LABS: BACTERIA URINE NONE SEEN; WBC URINE 0-2 /hpf (0-2)
[2024-02-21] MEDS ORDERED: GUAIFENESIN-DM 200MG-20MG/10ML UDC PO PRN (12:30)
[2024-02-21] MEDS ORDERED: CEFTRIAXONE 1GM/50ML 50 ML IV SCH (23:00)
[2024-02-21 23:23] LABS: PLATELET ESTIMATE NORMAL
[2024-02-22] VITALS (9 sets, daily range): BP systolic 130–151; BP diastolic 49–80; PULSE 50–93; RESP 17–20; TEMP 36.3918–36.61404; O2SAT 95–100
[2024-02-22 07:09] LABS: HEMATOCRIT. 31.7 % (36.0-48.0); HEMOGLOBIN. 10.1 g/dL (12.0-16.0); LYMPHOCYTES % 9.7 % (20.0-50.0); MEAN CORPUSCULAR HEMOGLOBIN 29.1 pg (28.0-32.0); MEAN CORPUSCULAR HGB CONC 31.8 g/dL (31.0-37.0); MEAN CORPUSCULAR VOLUME 91.5 fL (81.0-99.0); MEAN PLATELET VOLUME 9.3 fl (7.4-10.4); NEUTROPHILS % 84.3 % (40.0-76.0); PLATELET 212 x1000/uL (130-400); RED BLOOD CELL COUNT 3.47 mill/uL (4.2-5.4); RED CELL DISTRIBUTION WIDTH 17.9 % (11.6-14.6); WHITE BLOOD COUNT 9.8 x1000/uL (4.5-11.0)
[2024-02-22 07:17] LABS: CARBON DIOXIDE 22 mEq/L (21-32); CHLORIDE 106 mEq/L (98-107); POTASSIUM 5.4 mEq/L (3.5-5.1); SODIUM 137 mEq/L (136-145)
[2024-02-22 07:18] LABS: CALCIUM 9.7 mg/dL (8.7-10.4)
[2024-02-22 07:23] LABS: CREATININE 1.4 mg/dL (0.6-1.0); GLUCOSE 187 mg/dL (70-105); UREA NITROGEN BLOOD 57 mg/dL (9-23)
[2024-02-22 07:25] LABS: PHOSPHORUS 3.6 mg/dL (2.5-4.9)
[2024-02-22] MEDS: SODIUM POLYSTYRENE SULFONATE 15 G/60 ML BOT PO NR (17:09)
== END 2024-02-22 19:09 | disposition short-term general hospital (02) | DRG 871 ==
LOC: ER 18:10 → EDBEDREQ 23:47 → MICUSO 02-18 02:16 → EDBEDREQ 02-18 02:18 → EDBEDREQSVC 02-18 02:18 → EDBEDREQ 02-18 02:19 → 7WST 02-20 18:31
PROVIDERS: ADMIT Family Medicine Adult Medicine; ATTEND Family Medicine Adult Medicine
PROC: 02HV33Z Insertion of Infusion Device into Superior Vena Cava, Percutaneous Approach (ICD-10-PCS; principal; 2024-02-18)
PROC: B548ZZA Ultrasonography of Superior Vena Cava, Guidance (ICD-10-PCS; 2024-02-18)
PROC: 30243N1 Transfusion of Nonautologous Red Blood Cells into Central Vein, Percutaneous Approach (ICD-10-PCS; 2024-02-18)
DX: A41.9 Sepsis, unspecified organism (principal); J96.01 Acute respiratory failure with hypoxia; L89.893 Pressure ulcer of other site, stage 3; N17.0 Acute kidney failure with tubular necrosis; R65.21 Severe sepsis with septic shock; N18.6 End stage renal disease; R57.8 Other shock; I13.2 Hypertensive heart and chronic kidney disease with heart failure and with stage 5 chronic kidney disease, or end stage renal disease; N39.0 Urinary tract infection, site not specified; J45.901 Unspecified asthma with (acute) exacerbation; I42.9 Cardiomyopathy, unspecified; Z68.41 Body mass index [BMI] 40.0-44.9, adult; E11.22 Type 2 diabetes mellitus with diabetic chronic kidney disease; I50.9 Heart failure, unspecified; R31.0 Gross hematuria; I48.91 Unspecified atrial fibrillation; E66.9 Obesity, unspecified; R00.1 Bradycardia, unspecified; E87.5 Hyperkalemia; J44.89 Other specified chronic obstructive pulmonary disease; E78.5 Hyperlipidemia, unspecified; I34.0 Nonrheumatic mitral (valve) insufficiency; Z79.02 Long term (current) use of antithrombotics/antiplatelets; Z79.899 Other long term (current) drug therapy; Z89.612 Acquired absence of left leg above knee; Z79.84 Long term (current) use of oral hypoglycemic drugs; Z88.2 Allergy status to sulfonamides; Z90.710 Acquired absence of both cervix and uterus
CPT/HCPCS: 36415; 36573; 71045; 74018; 74177; 80048; 80053; 80076; 81003; 82962; 83036; 83735; 83880; 84100; 84134; 84145; 84484; 85025; 85027; 86705; 86850; 86900; 86920; 87340; 93005; 93306; 94640; 99291; A6261; C1725; C9132; J0696; J1815; J1940; J2270; J2919; J2920; J3490; J7030; P9016; Q9967

== ENCOUNTER 2024-05-14 11:30 | Inpatient (IN) | payer OTHER, MEDICARE ==
[~2024-05-14] VITALS: Ht 167.6 cm; Wt 135.6 kg
[2024-05-14 11:33] VITALS: O2SAT 97
[2024-05-14] MEDS ORDERED: KETOROLAC 30MG/ML VIAL IV STA (11:39)
[2024-05-14 12:51] LABS: BASOPHILS % 0.6 % (0.0-2.0); EOSINOPHILS % 2.5 % (0.0-5.0); HEMATOCRIT. 28.1 % (36.0-48.0); HEMOGLOBIN. 8.9 g/dL (12.0-16.0); LYMPHOCYTES % 12.5 % (20.0-50.0); MEAN CORPUSCULAR HEMOGLOBIN 26.9 pg (28.0-32.0); MEAN CORPUSCULAR HGB CONC 31.6 g/dL (31.0-37.0); MEAN CORPUSCULAR VOLUME 85.1 fL (81.0-99.0); MEAN PLATELET VOLUME 8.3 fl (7.4-10.4); MONOCYTES % 7.3 % (2.0-8.0); NEUTROPHILS % 77.1 % (40.0-76.0); PLATELET 341 x1000/uL (130-400); RED CELL DISTRIBUTION WIDTH 20.3 % (11.6-14.6); WHITE BLOOD COUNT 5.4 x1000/uL (4.5-11.0)
[2024-05-14 13:00] LABS: CHLORIDE 108 mEq/L (98-107); POTASSIUM 4.7 mEq/L (3.5-5.1); SODIUM 140 mEq/L (136-145)
[2024-05-14 13:01] LABS: CARBON DIOXIDE 26 mEq/L (21-32)
[2024-05-14 13:02] LABS: CALCIUM 9.1 mg/dL (8.7-10.4)
[2024-05-14 13:06] LABS: CREATININE 0.8 mg/dL (0.6-1.0); GLUCOSE 135 mg/dL (70-105); UREA NITROGEN BLOOD 56 mg/dL (9-23)
[2024-05-14 13:07] LABS: TROPONIN I HIGH SENSITIVITY 14 ng/L (3.0-34)
[2024-05-14] MEDS ORDERED: AZITHROMYCIN 500MG/250ML 250 ML IV STA (13:38)
[2024-05-14] MEDS ORDERED: CEFTRIAXONE 1GM/50ML 50 ML IV ONE (13:45)
[2024-05-14] MEDS: KETOROLAC 30MG/ML VIAL IV NR (16:39)
[2024-05-14] MEDS: CEFTRIAXONE 1GM/50ML 50 ML IV NR (16:39)
[2024-05-14] MEDS ORDERED: GUAIFENESIN 200MG/10ML SUGAR FREE UDC PO PRN (17:45)
[2024-05-14] MEDS ORDERED: IPRATROPIUM/ALBUTEROL 0.5-3(2.5)MG/3ML NEB HHN PRN (17:45)
[2024-05-14] MEDS ORDERED: ONDANSETRON HCL 4MG/2ML INJ IV PRN (17:45)
[2024-05-14] MEDS ORDERED: CLONIDINE 0.1MG TABLET PO PRN (17:45)
[2024-05-14] MEDS ORDERED: DOCUSATE SODIUM 100MG CAPSULE PO PRN (17:45)
[2024-05-14] MEDS ORDERED: ACETAMINOPHEN 325MG TABLET PO PRN ×2 (17:45)
[2024-05-14] MEDS ORDERED: DEXTROSE 50% WATER 50ML SYRINGE IV PRN (18:15)
[2024-05-14] MEDS: AZITHROMYCIN 500MG/250ML 250 ML IV NR (19:06)
[2024-05-14] MEDS: BLOOD SUGAR DIAGNOSTIC STRIP TEST SCH (19:32)
[2024-05-14] MEDS: INSULIN LISPRO 100 UNITS/ML SUBCUT SCH (19:34)
[2024-05-14 20:26] LABS: IRON 24 ug/dL (50-170)
[2024-05-14 20:29] LABS: TOTAL IRON BINDING CAPACITY 434 ug/dl (250-425)
[2024-05-14 21:21] LABS: INFLUENZA TYPE A Presumptive Negative (Pres. Neg.); INFLUENZA TYPE B Presumptive Negative (Pres. Neg.)
[2024-05-14 21:22] LABS: RESPIRATORY SYNCYTIAL VIRUS Not Detected (Not Detectd)
[2024-05-14] MEDS: FAMOTIDINE 20MG TABLET PO SCH (21:55)
[2024-05-14] MEDS: ATORVASTATIN CALCIUM 40MG TABLET PO SCH (22:11)
[2024-05-14 23:37] LABS: D-DIMER 1.26 mg/L FEU (<0.50); INR 1.1; PROTHROMBIN TIME 12.4 sec (9.6-11.0)
[2024-05-14 23:49] LABS: CREATINE KINASE MB FRACTION 0.6 ng/mL (0.5-3.6)
[2024-05-15] VITALS (7 sets, daily range): BP systolic 98–159; BP diastolic 28–117; PULSE 63–85; RESP 16–20; TEMP 36.1–37.1; O2SAT 92–100
[2024-05-15] MEDS: FUROSEMIDE 40MG/4ML VIAL IVP NR (08:30)
[2024-05-15 08:42] LABS: CARBON DIOXIDE 25 mEq/L (21-32); CHLORIDE 109 mEq/L (98-107); POTASSIUM 4.5 mEq/L (3.5-5.1); SODIUM 141 mEq/L (136-145)
[2024-05-15 08:44] LABS: CALCIUM 9.5 mg/dL (8.7-10.4); CREATINE KINASE MB FRACTION 0.8 ng/mL (0.5-3.6)
[2024-05-15 08:47] LABS: ALBUMIN 3.2 g/dL (3.2-4.8); BASOPHILS % 1.4 % (0.0-2.0); EOSINOPHILS % 5.5 % (0.0-5.0); HEMATOCRIT. 29.3 % (36.0-48.0); LYMPHOCYTES % 24.6 % (20.0-50.0); MEAN CORPUSCULAR HEMOGLOBIN 26.3 pg (28.0-32.0); MEAN CORPUSCULAR HGB CONC 30.8 g/dL (31.0-37.0); MEAN CORPUSCULAR VOLUME 85.1 fL (81.0-99.0); MEAN PLATELET VOLUME 9.1 fl (7.4-10.4); MONOCYTES % 11.6 % (2.0-8.0); NEUTROPHILS % 56.9 % (40.0-76.0); PLATELET 322 x1000/uL (130-400); RED BLOOD CELL COUNT 3.44 mill/uL (4.2-5.4); RED CELL DISTRIBUTION WIDTH 20.3 % (11.6-14.6); WHITE BLOOD COUNT 4.4 x1000/uL (4.5-11.0)
[2024-05-15 08:48] LABS: CREATININE 0.8 mg/dL (0.6-1.0); GLUCOSE 84 mg/dL (70-105)
[2024-05-15 08:49] LABS: LDL CHOLESTEROL 39 mg/dL (5-100); T4 FREE 1.27 ng/dL (0.89-1.76); THYROID STIMULATING HORMONE 0.21 uIU/mL (0.55-4.78); TRIGLYCERIDE 51 mg/dL (0-150); UREA NITROGEN BLOOD 51 mg/dL (9-23)
[2024-05-15 08:50] LABS: CHOLESTEROL 79 mg/dL (<200)
[2024-05-15 08:51] LABS: HDL CHOLESTEROL 27 mg/dL (>65)
[2024-05-15] MEDS: SODIUM CHLORIDE 0.45% 1,000 ML IV SCH (09:30)
[2024-05-15] MEDS: ENOXAPARIN 40MG/0.4ML SYR SUBCUT SCH (10:15)
[2024-05-15] MEDS: CEFTRIAXONE 1GM/50ML 50 ML IV SCH (18:12)
[2024-05-15] MEDS ORDERED: AZITHROMYCIN 500MG/250ML 250 ML IV SCH (19:00)
[2024-05-15] MEDS ORDERED: ATORVASTATIN CALCIUM 40MG TABLET PO SCH (21:00)
[2024-05-15] MEDS: AMLODIPINE 2.5MG TABLET PO SCH (21:40)
[2024-05-15] MEDS: ENOXAPARIN 30MG/0.3ML SYR SUBCUT SCH (21:42)
[2024-05-15] MEDS: AZITHROMYCIN 500 MG in SODIUM CHLORIDE 0.9% 250 ML IV SCH (22:00)
== END 2024-05-15 23:00 | disposition short-term general hospital (02) | DRG 189 ==
LOC: ER 11:30 → 5WST 13:55 → UNDOADMIN 13:55 → EDBEDREQTM 13:57 → EDBEDREQ 13:57
PROVIDERS: ADMIT Hospitalist; ATTEND Hospitalist
DX: J96.01 Acute respiratory failure with hypoxia (principal); J18.9 Pneumonia, unspecified organism; J44.0 Chronic obstructive pulmonary disease with (acute) lower respiratory infection; Z68.42 Body mass index [BMI] 45.0-49.9, adult; I11.0 Hypertensive heart disease with heart failure; Z20.822 Contact with and (suspected) exposure to COVID-19; E78.5 Hyperlipidemia, unspecified; D50.9 Iron deficiency anemia, unspecified; I50.9 Heart failure, unspecified; E66.813 Obesity, class 3; I25.10 Atherosclerotic heart disease of native coronary artery without angina pectoris; I48.0 Paroxysmal atrial fibrillation; E87.5 Hyperkalemia; E11.51 Type 2 diabetes mellitus with diabetic peripheral angiopathy without gangrene; G47.33 Obstructive sleep apnea (adult) (pediatric); E86.0 Dehydration; E11.65 Type 2 diabetes mellitus with hyperglycemia; Z88.2 Allergy status to sulfonamides; Z89.512 Acquired absence of left leg below knee; Z79.84 Long term (current) use of oral hypoglycemic drugs; Z79.899 Other long term (current) drug therapy; Z89.612 Acquired absence of left leg above knee; Z99.3 Dependence on wheelchair
CPT/HCPCS: 36415; 71045; 80048; 80061; 82040; 82550; 82553; 82962; 83036; 83540; 83550; 83880; 84145; 84439; 84443; 84481; 84484; 85025; 85379; 87420; 87426; 87804; 93005; 93970; 99285; A4606; J0456; J0696; J1650; J1815; J1885; J1940; J7050